=== PATIENT | female | born 1985 | race African-American/Black ===

== ENCOUNTER 2016-06-22 14:54 | Emergency (ER) | payer OTHER ==
[2016-06-22 15:15] VITALS: BP 126/73; PULSE 64; TEMP 98.4; BMI 36.3
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
[2016-06-22] MEDS ORDERED: KETOROLAC TROMETHAMINE 60 MG/2 ML VIAL IM ONE (16:43)
[2016-06-22] MEDS ORDERED: KETOROLAC TROMETHAMINE 60 MG/2 ML VIAL ONE (17:23)
--- NOTE | 2016-06-23 11:33 | PDOC ---
Patient Follow-up (Call Back) - Post ED Follow - Up Condition at time of discharge: Good Disposition at time of original discharge: HOME Reason for Call Back: Radiology (Limited XR of cspine as per radiology, unable to visualize odontoid on open mouth view. Nodule also seen on CXR I called pt at [phone] with no response. No VM set up. Will re-attempt)
--- NOTE | 2016-06-26 14:22 | PDOC ---
Patient Follow-up (Call Back) - Post ED Follow - Up Condition at time of discharge: Good Disposition at time of original discharge: HOME Reason for Call Back: Radiology (Called and unable to l//m for pt, no vm set up)
== END 2016-06-22 17:43 | disposition home or self-care (01) ==
LOC: JERFT 14:54
PROC: 3E0233Z Introduction of Anti-inflammatory into Muscle, Percutaneous Approach (ICD-10-PCS; principal; 2016-06-22)
DX: S16.1XXA Strain of muscle, fascia and tendon at neck level, initial encounter (principal); S29.011A Strain of muscle and tendon of front wall of thorax, initial encounter; S39.012A Strain of muscle, fascia and tendon of lower back, initial encounter; S29.012A Strain of muscle and tendon of back wall of thorax, initial encounter; V47.5XXA Car driver injured in collision with fixed or stationary object in traffic accident, initial encounter; Y92.414 Local residential or business street as the place of occurrence of the external cause; Y93.89 Activity, other specified
CPT/HCPCS: 71020-TC; 72050-TC; 72100-TC; 84703; 96372; 99281-25

== ENCOUNTER 2018-03-11 10:25 | Emergency (ER) | payer OTHER ==
[2018-03-11 10:30] VITALS: BP 116/72; PULSE 72; TEMP 97.8; BMI 31.4
[2018-03-11] MEDS ORDERED: IBUPROFEN 600 MG TABLET (FP) PO ONE ×2 (11:20→11:24)
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
== END 2018-03-11 12:21 | disposition home or self-care (01) ==
LOC: JERFT 10:25
DX: B97.89 Other viral agents as the cause of diseases classified elsewhere (principal); R09.82 Postnasal drip; F17.210 Nicotine dependence, cigarettes, uncomplicated
CPT/HCPCS: 87804; 99281-25

== ENCOUNTER 2018-08-07 11:37 | Emergency (ER) | payer OTHER ==
[2018-08-07 12:00] VITALS: BP 113/56; PULSE 64; TEMP 97.9; BMI 34.9
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
[2018-08-07 13:12] LABS: BASO % 0.6 % (0-2.0); EOS % 0.8 % (0-4.5); HEMATOCRIT 33.9 % (32.4-45.2); HEMOGLOBIN 10.7 GM/dL (10.7-15.3); LYMPH % 20.2 % (8-40); MCH 23.2 pg (25.7-33.7); MCHC 31.6 g/dl (32.0-36.0); MEAN CELL VOLUME 73.2 fl (80-96); MEAN PLT VOLUME 9.5 fl (7.5-11.1); MONO % 8.3 % (3.8-10.2); NEUT % 70.1 % (42.8-82.8); PLATELET COUNT 270 K/MM3 (134-434); RBC 4.63 M/mm3 (3.60-5.2); RDW 15.7 % (11.6-15.6); WHITE BLOOD COUNT 6.9 K/mm3 (4.0-10.0)
[2018-08-07 13:17] LABS: HCG,QUALITATIVE URINE Positive
[2018-08-07 13:19] LABS: EPI CELLS 2.7 /HPF (0-5/HPF); URINE APPEARANCE CLEAR; URINE BACTERIA 47.6 /hpf (NEGATIVE); URINE BILIRUBIN NEGATIVE (NEGATIVE); URINE CASTS 1 /lpf (0-8); URINE COLOR YELLOW; URINE GLUCOSE (UA) NEGATIVE (NEGATIVE); URINE KETONE NEGATIVE (NEGATIVE); URINE LEUK ESTERASE NEGATIVE (NEGATIVE); URINE NITRITE NEGATIVE (NEGATIVE); URINE PROTEIN NEGATIVE (NEGATIVE); URINE RBC 1 /hpf (0-4); URINE UROBILINOGEN 0.2 mg/dL (0.2-1.0); URINE WBC 1 /hpf (0-5)
[2018-08-07 13:27] LABS: INR 1.19 (0.83-1.09); PROTHROMBIN TIME (PATIENT) 14.1 SEC (9.7-13.0)
[2018-08-07 13:30] LABS: ACTIVATED PTT 33.7 SECONDS (25.2-36.5)
[2018-08-07 13:46] LABS: ALBUMIN 3.7 g/dl (3.4-5.0); ALK PHOS 52 U/L (45-117); ANION GAP 8 MMOL/L (8-16); BILIRUBIN,TOTAL 0.4 mg/dL (0.2-1); BLOOD UREA NITROGEN 11 mg/dL (7-18); CALCIUM 8.8 mg/dL (8.5-10.1); CHLORIDE 106 mmol/L (98-107); CO2 25 mmol/L (21-32); CREATININE 0.7 mg/dL (0.55-1.3); GLUCOSE,RANDOM 82 mg/dL (74-106); POTASSIUM 3.9 mmol/L (3.5-5.1); SGOT/AST 14 U/L (15-37); SGPT/ALT 15 U/L (13-61); SODIUM 139 mmol/L (136-145); TOT PROT 7.4 g/dl (6.4-8.2)
--- NOTE | 2018-08-07 14:00 | PDOC ---
Documentation entered by Maggie Lopez SCRIBE, acting as scribe for Usama Bartholomew MD. Usama Bartholomew MD: This documentation has been prepared by the bertinibe, Maggie Lopez SCRIBE, under my direction and personally reviewed by me in its entirety. I confirm that the documentation accurately reflects all work, treatment, procedures, and medical decision making performed by me. Attending Attestation - Resident Resident Name: Lewis Briceno - ED Attending Attestation I have performed the following: I have examined & evaluated the patient, The case was reviewed & discussed with the resident, I agree w/resident's findings & plan, Exceptions are as noted - HPI HPI: 08/07/18 13:49 The patient is a 33 year old female, with no significant past medical history, who presents to the emergency department with, 2 weeks of vaginal bleeding. As per patient, her bleeding onset 07/28 with associated abdominal cramping and back pain which she believed was her normal menses. Patient normally experiences cramping and back pain with her menses, however, her bleeding is abnormal (usually 5 days) prompting her arrival to the ED. She denies any abnormal vaginal discharge. Allergies: Penicillins, sardines. - Physicial Exam PE: 08/07/18 13:49 GENERAL: Awake, alert, and fully oriented, in no acute distress HEAD: No signs of trauma ABDOMEN: Soft, nontender. No guarding, no rebound. PELVIC: Refer to resident exam. EXTREMITIES: Normal range of motion, no edema. No clubbing or cyanosis. No cords, erythema, or tenderness NEUROLOGICAL: Cranial nerves II through XII grossly intact. Normal speech. SKIN: Warm, Dry, normal turgor, no rashes or lesions noted. - Medical Decision Making 08/07/18 13:57 A portion of this note was documented by vic services under my direction. I have reviewed the details of the note, within reason, and agree with the documentation with the following case summary and management plan written by me. Patient treated in the ED. Nursing notes are reviewed and incorporated into the medical decision-making. Vital signs reviewed. Peripheral IV access obtained by the nurse, laboratory studies are drawn and sent, reviewed and interpreted by myself. Vital Signs Temp Pulse Resp BP Pulse Ox 97.9 F 64 16 113/56 L 99 05/04/19 11:58 08/07/18 11:58 08/07/18 11:58 08/07/18 11:58 08/07/18 11:58 33-year-old female with no past medical history presents with 2 weeks of intermittent vaginal bleeding. The patient reported at the end of July on the , the patient initiated her bleeding which she thought initially was her period. However, patient continued to have some uterine cramping, and was concerned that the bleeding would not stop. The patient is sexually active. Does not take any control pills or anything. Here, the patient is found to have urine prior to tests positive. The patient may potentially be having a miscarriage. However, we'll need to rule out ectopic . Check beta hCG, type and screen, transvaginal ultrasound. Reassess. 08/07/18 15:18 CBC, BMP 08/07/18 12:57 08/07/18 12:57 CMP Sodium 139 mmol/L (136-145) 08/07/18 12:57 Potassium 3.9 mmol/L (3.5-5.1) 08/07/18 12:57 Chloride 106 mmol/L (98-107) 08/07/18 12:57 Carbon Dioxide 25 mmol/L (21-32) 08/07/18 12:57 Anion Gap 8 MMOL/L (8-16) 08/07/18 12:57 BUN 11 mg/dL (7-18) 08/07/18 12:57 Creatinine 0.7 mg/dL (0.55-1.3) 08/07/18 12:57 Creat Clearance w eGFR 96.37 (>60) 08/07/18 12:57 Random Glucose 82 mg/dL (74-106) 08/07/18 12:57 Calcium 8.8 mg/dL (8.5-10.1) 08/07/18 12:57 Total Bilirubin 0.4 mg/dL (0.2-1) 08/07/18 12:57 AST 14 U/L (15-37) L 08/07/18 12:57 ALT 15 U/L (13-61) 08/07/18 12:57 Alkaline Phosphatase 52 U/L (45-117) 08/07/18 12:57 Total Protein 7.4 g/dl (6.4-8.2) 08/07/18 12:57 Albumin 3.7 g/dl (3.4-5.0) 08/07/18 12:57 Beta HCG, Quant 127.7 mIU/ml 08/07/18 12:57 Rh positive. Urine Test Results Urine Color Yellow 08/07/18 11:18 Urine Appearance Clear 08/07/18 11:18 Urine pH 5.0 (5.0-8.0) 08/07/18 11:18 Ur Specific [place] 1.025 (1.010-1.035) 08/07/18 11:18 Urine Protein Negative (NEGATIVE) 08/07/18 11:18 Urine Glucose (UA) Negative (NEGATIVE) 08/07/18 11:18 Urine Ketones Negative (NEGATIVE) 08/07/18 11:18 Urine Blood 1+ (NEGATIVE) H 08/07/18 11:18 Urine Nitrite Negative (NEGATIVE) 08/07/18 11:18 Urine Bilirubin Negative (NEGATIVE) 08/07/18 11:18 Ur Leukocyte Esterase Negative (NEGATIVE) 08/07/18 11:18 08/07/18 15:18 Ultrasound demonstrates no obvious intrauterine . However, given that the beta hCGs 127, we were not expecting to see an IUP. Differential still includes ectopic versus spontaneous . I did speak to Dr. Christian. He had recommended that the patient should return in 48 hours for repeat beta hCG and ultrasound. He did potentially suggest that the patient could trial methotrexate. However, the patient deferred on this medication and would like to wait for 48 hours. Patient does have a election judge, Dr. Moreland, that she will to follow-up. I advised the patient that she may potentially need a D&C or medications if she continues to bleed. Patient verbalizes understanding agrees with plan. She would follow-up in 48 hours for repeat test.
== END 2018-08-07 15:24 | disposition home or self-care (01) ==
LOC: JER 11:37
DX: O26.891 Other specified pregnancy related conditions, first trimester (principal); O20.8 Other hemorrhage in early pregnancy; Z3A.01 Less than 8 weeks gestation of pregnancy
CPT/HCPCS: 36415; 76830-TC; 80053; 81003; 84702; 84703; 85025; 85610; 85730; 86850; 86900; 86901; 87086; 99282-25

== ENCOUNTER 2018-08-26 19:01 | Emergency (ER) | payer OTHER ==
[2018-08-26 19:12] VITALS: BP 116/60; PULSE 63; BMI 36.1
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
== END 2018-08-26 19:25 | disposition home or self-care (01) ==
LOC: FER 19:01
DX: Z04.1 Encounter for examination and observation following transport accident (principal); V63.5XXA Driver of heavy transport vehicle injured in collision with car, pick-up truck or van in traffic accident, initial encounter; Y93.89 Activity, other specified; Y92.410 Unspecified street and highway as the place of occurrence of the external cause; Y99.0 Civilian activity done for income or pay; Z87.891 Personal history of nicotine dependence
CPT/HCPCS: 99281-25